=== PATIENT | female | born 1960 | race Caucasian/White ===

== ENCOUNTER 2017-07-23 14:15 | Emergency (ER) | payer BC ==
[2017-07-23 15:25] VITALS: BP 107/59
--- NOTE | 2017-07-23 16:51 | UC ---
Skin Complaint HPI - HPI Summary HPI Summary: Patient complains of tick bite on Tue or , chich is when she was outside. Noticed tick today and pulled out most of it, but a piece is still left in place. Concerned re Lyme. Has been feeling wlell. No fever, headache nausea or joint pains or rash. - History of Current Complaint Chief Complaint: UCSkin Time Seen by Provider: 07/23/17 15:40 Stated Complaint: TICK Hx Last Menstrual Period: none ?: No - post judie Onset/Duration: Lasting Days - 3 days ago Skin Exposure Onset/Duration: Days Ago - 3 Timing: Constant Onset Severity: Mild Current Severity: Mild Pain Intensity: 2 Pain Scale Used: 0-10 Numeric Location: Discrete - leg Aggravating Factor(s): Nothing Alleviating Factor(s): Nothing Associated Signs & Symptoms: Positive: Negative Related History: Insect Bite/Sting - tick - Allergy/Home Medications Allergies/Adverse Reactions: Allergies Allergy/AdvReac Type Severity Reaction Status Date / Time No Known Allergies Allergy Verified 07/23/17 15:19 Review of Systems Constitutional: Negative, Fever - no fever, chills or sweats. Skin: Bruising - at site of bite on right, medial , mid lower leg. Eyes: Negative ENT: Negative Respiratory: Negative Cardiovascular: Negative Gastrointestinal: Negative Genitourinary: Negative Motor: Negative Neurovascular: Negative Musculoskeletal: Negative Neurological: Negative Psychological: Negative Is Patient Immunocompromised?: No All Other Systems Reviewed And Are Negative: Yes PMH/Surg Hx/FS Hx/Imm Hx Previously Healthy: Yes - Surgical History Surgical History: Yes Surgery Procedure, Year, and Place: - Family History Known Family History: Positive: None - Social History Lives: With Family Alcohol Use: Rare Substance Use Type: None Smoking Status (MU): Former Smoker Type: Cigarettes Length of Time of Smoking/Using Tobacco: 10years Have You Smoked in the Last Year: No When Did the Patient Quit Smoking/Using Tobacco: 30 years ago Physical Exam Triage Information Reviewed: Yes Appearance: Well-Appearing Vital Signs: Initial Vital Signs Temp 99.4 F 07/23/17 15:19 Pulse 78 07/23/17 15:19 Resp 18 07/23/17 15:19 BP 107/59 07/23/17 15:19 Pulse Ox 99 07/23/17 15:19 Vital Signs Reviewed: Yes Eye Exam: Normal Eyes: Positive: Conjunctiva Clear ENT Exam: Normal ENT: Positive: Normal ENT inspection Dental Exam: Normal Neck exam: Normal Neck: Positive: Supple, Nontender, No Lymphadenopathy Respiratory Exam: Normal Respiratory: Positive: Lungs clear Cardiovascular Exam: Normal Cardiovascular: Positive: RRR, No Murmur Abdominal Exam: Normal Abdomen Description: Positive: Nontender, No Organomegaly Bowel Sounds: Positive: Present Musculoskeletal Exam: Normal Musculoskeletal: Positive: Strength Intact, ROM Intact Neurological Exam: Normal Neurological: Positive: Alert, Muscle Tone Normal Psychological Exam: Normal - area of tick bite still has mouth parts and they are surrounded by a 1/2 cm in diameter area of ecchyhmosis. No sign of infection. Re-Evaluation - Re-Evaluation First Eval Comment: small piece of tick was removed with tweezers, but a smaller one is still embedded. advised patient not to dig after it, as this can cause more problems. Will watch for signs of infection. Course/Dx - Diagnoses Provider Diagnoses: tick bite Discharge - Sign-Out/Discharge Documenting (check all that apply): Post-Discharge Follow Up - with primary care - Discharge Plan Condition: Stable Disposition: HOME Prescriptions: DOXYcycline CAP(*) [DOXYcycline 100MG CAP(*)] 200 mg PO ONCE #2 cap Patient Education Materials: Tick Bite (ED) Referrals: Loyda Booker PA [Primary Care Provider] - - Billing Disposition and Condition Condition: STABLE Disposition: Home
== END 2017-07-23 16:02 | disposition home or self-care (01) ==
LOC: UCCORT 14:15
DX: S80.861A Insect bite (nonvenomous), right lower leg, initial encounter (principal); W57.XXXA Bitten or stung by nonvenomous insect and other nonvenomous arthropods, initial encounter; Y93.9 Activity, unspecified; Y92.9 Unspecified place or not applicable; Y99.9 Unspecified external cause status; Z87.891 Personal history of nicotine dependence
CPT/HCPCS: 99212; G0463

== ENCOUNTER 2019-01-28 09:23 | Emergency (ER) | payer BC ==
[2019-01-28 11:02] VITALS: BP 113/66
--- NOTE | 2019-01-28 11:17 | UC ---
Eye Complaint HPI - HPI Summary HPI Summary: 58-year-old female presents with 3 day history of left eye redness, itchiness, and irritation. States yesterday she was noting some purulent discharge from the eye. Patient does wear contacts. Denies fever, chills, URI symptoms, eye pain, visual disturbances, or injury. - History of Current Complaint Chief Complaint: UCEye Stated Complaint: LEFT EYE COMPLAINR Time Seen by Provider: 01/28/19 10:54 Hx Obtained From: Patient Hx Last Menstrual Period: none Pain Intensity: 0 - Allergies/Home Medications Allergies/Adverse Reactions: Allergies Allergy/AdvReac Type Severity Reaction Status Date / Time No Known Allergies Allergy Verified 01/28/19 11:02 PMH/Surg Hx/FS Hx/Imm Hx Previously Healthy: Yes - Denies significant PMH - Surgical History Surgical History: Yes Surgery Procedure, Year, and Place: - Family History Known Family History: Positive: Non-Contributory - Social History Occupation: Employed Full-time Lives: Alone Alcohol Use: Rare Substance Use Type: None Smoking Status (MU): Former Smoker Type: Cigarettes Length of Time of Smoking/Using Tobacco: 10years Have You Smoked in the Last Year: No When Did the Patient Quit Smoking/Using Tobacco: 30 years ago Review of Systems All Other Systems Reviewed And Are Negative: Yes Constitutional: Negative: Fever, Chills Eyes: Positive: Drainage, Eye Redness. Negative: Blurred Vision, Diplopia, Photophobia ENT: Negative: Sore Throat, Nasal Discharge, Sinus Congestion, Sinus Pain/ Tenderness Respiratory: Negative: Cough Cardiovascular: Positive: Negative Gastrointestinal: Positive: Negative Genitourinary: Positive: Negative Musculoskeletal: Positive: Negative Neurological: Positive: Negative Is Patient Immunocompromised?: No Physical Exam - Summary Physical Exam Summary: GENERAL APPEARANCE: Well developed, well nourished, alert and cooperative, and appears to be in no acute distress. EYES: Right conjunctiva clear. No drainage. Left conjunctival erythema with scant amount of purulent drainage noted to corner of the eye. Vision grossly intact. EARS: External auditory canals and tympanic membranes clear, hearing grossly intact. NOSE: No nasal discharge. THROAT: Pharynx normal. No tonsilar inflammation, swelling, exudate, or lesions. Uvula midline. NECK: Neck supple, non-tender without lymphadenopathy. CARDIAC: Normal S1 and S2. No S3, S4 or murmurs. Rhythm is regular. There is no peripheral edema, cyanosis or pallor. Extremities are warm and well perfused. Capillary refill is less than 2 seconds. Peripheral pulses intact. LUNGS: Clear to auscultation without rales, rhonchi, wheezing or diminished breath sounds. ABDOMEN: Positive bowel sounds. Soft, nondistended, nontender. No guarding or rebound. No masses or hepatosplenomegally. MUSKULOSKELETAL: ROM intact to all extremities. No joint erythema or tenderness. Normal muscular development. Normal gait. SKIN: Skin normal color, texture and turgor with no lesions or eruptions. Triage Information Reviewed: Yes Vital Signs: Initial Vital Signs Temp 98.4 F 01/28/19 10:57 Pulse 66 01/28/19 10:57 Resp 16 01/28/19 10:57 BP 113/66 01/28/19 10:57 Pulse Ox 100 01/28/19 10:57 Vital Signs Reviewed: Yes Eye Complaint Course/Dx - Course Course Of Treatment: 58-year-old female presents with 3 day history of left eye redness, itchiness, and irritation. States yesterday she was noting some purulent discharge from the eye. Patient does wear contacts. Denies fever, chills, URI symptoms, eye pain, visual disturbances, or injury. Afebrile. Vital signs stable. Patient' s right conjunctiva was clear without drainage. The left conjunctiva was erythematous with scant amount of purulent drainage noted to corner of the eye. Vision grossly intact. Remainder of exam was unremarkable. Discussed with patient that her symptoms are likely from a bacterial conjunctivitis. We'll treat with ofloxacin one to 2 drops in the affected eye every 4 hours while awake for the first 2 days then 1-2 drops 4 times a day for the next 5 days. She was counseled to avoid contact use into use a new pair upon completion of treatment. She is to return here or follow up with her primary care provider in 2-3 days if symptoms are not improving. Anticipatory guidance and warning symptoms are reviewed with the patient. Verbalizes understanding and agrees with plan of care. - Differential Dx/Diagnosis Differential Diagnosis/HQI/PQRI: Conjunctivitis, Corneal Abrasion, Foreign Body , Periorbital Cellulitis, Orbital Cellulitis Provider Diagnosis: Bacterial conjunctivitis of left eye Discharge ED - Sign-Out/Discharge Documenting (check all that apply): Patient Departure All imaging exams completed and their final reports reviewed: No Studies - Discharge Plan Condition: Stable Disposition: HOME Prescriptions: Ofloxacin 0.3% (Eye Drop) [Ocuflox OPTH 0.3% (Eye Drop)] 1 - 2 drop LEFT EYE Q4H #1 btl Patient Education Materials: Conjunctivitis (ED) Referrals: Brian Cruz MD [Primary Care Provider] - 2 Days (Follow up in 2-3 days if no improvement.) Additional Instructions: Start ofloxacin ophthalmic drops. Instill 1-2 drops into affected eye(s) every 4 hours while awake for first 2 days then 1-2 drops 4 times a day for next 5 days Do not wear your contacts until you have completed the treatment. Throw out the old pair and use a new pair once you have completed you treatment. To avoid reinfection or spreading infection: * Use washcloths and towels once then launder. * Do not share washcloths or towels with others. * Change your pillow case each morning until you have finished treatment. * You should throw out any eye makeup, especially mascara, and use a new one once you have finished treatment. Follow up here or with your primary care provider in 3 days if no improvement. Seek immediate medical attention in the emergency room if you develop fever greater than 100.5 F, have pain or swelling of the eye, visual disturbances, loss of vision, or any worsening of symptoms. - Billing Disposition and Condition Condition: STABLE Disposition: Home - Attestation Statements Provider Attestation: I was available for consult. This patient was seen by the [facility]. The patient was not presented to , seen by or examined by -Beverly Zamorano MD
== END 2019-01-28 11:52 | disposition home or self-care (01) ==
LOC: UCCORT 09:23
DX: H10.9 Unspecified conjunctivitis (principal); B96.89 Other specified bacterial agents as the cause of diseases classified elsewhere
CPT/HCPCS: 99212; G0463

== ENCOUNTER 2023-09-28 09:49 | Observation (INO) ==
[2023-09-28] MEDS ORDERED: Lidocaine 2% PF 5 ML VIAL ONE (10:09)
[2023-09-28] MEDS ORDERED: fentaNYL 250 mcg/5 ml 50 MCG/ML 5 ml VIAL (250 MCG) ONE (10:09)
[2023-09-28] MEDS ORDERED: Midazolam 2 mg/2 ml VIAL 1 mg/ml 2 ml VIAL (2 mg) ONE (10:09)
[2023-09-28] MEDS ORDERED: Ondansetron 4 mg VIAL 2 MG/ML 2 ml VIAL ONE ×2 (10:09→14:31)
[2023-09-28] MEDS ORDERED: Propofol 10 MG/ML 20 ML BTL ONE (10:09)
[2023-09-28] MEDS ORDERED: Dexamethasone IV 4 MG/ML VIAL 1 ml VIAL ONE (10:09)
[2023-09-28] MEDS ORDERED: Rocuronium 50 mg VIAL 10 mg/ml 5 ml VIAL (50 mg) ONE (10:09)
[2023-09-28 11:00] LABS: Rapid COVID-19 Molecular Undetected (Undetected)
[2023-09-28] MEDS ORDERED: ceFAZolin 2 GM PREMIX 2 GM/50 ML BAG ONE (11:06)
[2023-09-28] MEDS ORDERED: Lidocaine 1% w EPI 1:100,000 MDV 20 ML VIAL ONE (11:22)
[2023-09-28] MEDS ORDERED: ceFAZolin VIAL VIAL ONE (11:23)
[2023-09-28] MEDS ORDERED: Thrombin 5,000 UNITS 1 APPLIC KIT - topical use - TOPICAL ONE (11:23)
[2023-09-28] MEDS: Buffered Lidocaine 1% SYRIN 1 ml INTRADERM ONE (11:34)
[2023-09-28] MEDS: Scopolamine 1 mg/72hr PATCH TRANSDERM ONE (11:34)
[2023-09-28] MEDS: Lactated Ringers 1000 ml BAG 1,000 ML IV SCH ×2 (11:35→15:30)
[2023-09-28] MEDS ORDERED: Phenylephrine 40 mcg/mL 10mL (400mcg) SYRINGE ONE (12:11)
[2023-09-28] MEDS ORDERED: HYDROmorphone 0.5 MG/0.5 ML SYRINGE ONE (12:33)
[2023-09-28] MEDS ORDERED: fentaNYL 100 mcg/2 ml 50 MCG/ML VIAL ONE ×2 (12:33→14:31)
[2023-09-28] MEDS ORDERED: Ondansetron 4 mg VIAL 2 MG/ML 2 ml VIAL IV PRN (13:43)
[2023-09-28] MEDS ORDERED: Magnesium Hydroxide LIQ 30 ML UDC PO PRN (13:43)
[2023-09-28] MEDS ORDERED: Morphine 2 MG/ML SYRINGE IV PRN (13:43)
[2023-09-28] MEDS ORDERED: Dextran 70/Hypromellose Tears Eye Drops 15 ml BTL (for Artificials Tears) BOTH EYES PRN (13:43)
[2023-09-28] MEDS ORDERED: Calcium Carb (TUMS) 500 mg CHEW TAB PO PRN (13:43)
[2023-09-28] MEDS ORDERED: Phenol 1.4% Throat Spray BTL MT PRN (13:43)
[2023-09-28] MEDS ORDERED: Senna TAB 8.6 mg TAB PO PRN (13:43)
[2023-09-28] MEDS ORDERED: Benzocaine/Menthol LOZ MT PRN (13:43)
[2023-09-28] MEDS ORDERED: Naloxone 0.4 mg VIAL 0.4 mg/ml 1 ml VIAL IV PRN ×2 (14:23)
[2023-09-28] MEDS ORDERED: Metoclopramide 5 MG/ML VIAL (10 mg) IV PRN (14:23)
[2023-09-28] MEDS: Ondansetron 4 mg VIAL 2 MG/ML 2 ml VIAL IV PRN (14:32)
[2023-09-28] MEDS: fentaNYL 100 mcg/2 ml 50 MCG/ML VIAL IV PRN (14:33)
[2023-09-29 10:06] VITALS: BP 116/59
== END 2023-09-29 12:30 | disposition home or self-care (01) ==
LOC: SSU 09:49 → OR 09:49
PROVIDERS: ADMIT Neurological Surgery; ATTEND Neurological Surgery